=== PATIENT | female | born 1950 | race Caucasian/White ===

== ENCOUNTER 2016-08-28 22:12 | Inpatient (IN) | payer OTHER ==
--- NOTE | ~2016-08-28 | MR18 ---
[facility] A Service of [facility] RADIOLOGY TEXT RESULTS PATIENT: TYSON RETANA LOCATION: [facility] 340-01 : 49 UNIT #: [id number] AGE: [address]: Zuleika Vasquez MD SEX: F ORDER DR: [id number] [facility] [address]. [place], [place] [address] [id number] I MR#: [id number] #: [id number] NAME: TYSON RETANA : 1950 SEX: F STUDY DATE/TIME: 08/31/2016 11:45 [facility]: [facility] ROOM: 340 STUDY DESCRIPTION: MR Brain Wo Contrast Attending Physician: Zuleika Vasquez M.D. Ordering Physician: Zuleika Vasquez M.D. Primary Care Physician: Magalis Sky M.D. MRI CENTER REPORT This report is preliminary unless electronic signature is present. EXAM MRI of the brain without contrast performed on 08/31/2016 HISTORY 65-year-old female with confusion, UTI for the past 3 days. TECHNIQUE Sagittal and axial T1, axial T2, axial FLAIR, axial diffusion, axial gradient echo images were obtained through the region of the brain. FINDINGS There is evidence of scattered foci of restricted diffusion in both the swain and white matter in the left frontal and parietal lobe as well as posterior temporal lobe. Corresponding ADC is present and acute infarction is suspected. Edema is evident on the FLAIR sequence and the lesions are felt to be greater than 6 hours old. There is some decreased signal seen on the gradient echo image within the posterior left frontal lobe infarct portion and this may represent some petechial hemorrhage. The midline structures are intact and no pituitary or pineal lesions are evident. Within the right ethmoid, maxillary and frontal sinuses there is mucosal thickening present. IMPRESSION 1. Acute infarcts in the left cerebral hemisphere as described above. Some petechial hemorrhage noted on the gradient echo image in the posterior left frontal lobe and left parietal lobe cortical infarct. 2. No midline shift or significant mass effect. 3. Right sided sinusitis. Dictated by... Rodolfo Solares M.D. THIS IS AN ELECTRONICALLY VERIFIED REPORT [facility] A Service of [facility] RADIOLOGY TEXT RESULTS PATIENT: TYSON RETANA LOCATION: [facility] 340-01 : [birth year] UNIT #: [id number] AGE: [address]: Zuleika Vasquez MD SEX: F ORDER DR: Rodolfo Solares M.D. at 08/31/2016 7:04 PM Concha TD: 08/31/2016 15:11 JOB #: [id number] MRI CENTER REPORT COPY
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
--- NOTE | ~2016-08-28 | CO ---
Unit #: [id number] #: [id number] Patient: TYSON SPANGLER [id number] [facility]. [place], [place] [address] [id number] I MR#: [id number] NAME: TYSON SPANGLER ROOM: 340 Age: 65 Sex: F Admission Date: 08/29/2016 : 1950 Attending Physician: Zuleika Vasquez M.D. Primary Care Physician: Magalis Sky M.D. Consultation Date: 09/03/2016 CONSULTATION REPORT REASON FOR CONSULTATION Followup. DISCUSSION Ms. Zuleyma Spangler is a 65-year-old white female, seen on 09/03/2016. The patient was seen in room 340 at [facility]. The patient reports making progress. Pleasant and cooperative during interview. The patient was alert and oriented. Denied any thoughts of harming self or others. The patient is tolerating medication fairly well. Sleeping good. The patient denied any complaints. REVIEW OF SYSTEMS Complete review of systems is unremarkable. MENTAL STATUS EXAMINATION General appearance, the patient dressed casually, lying comfortably in bed. Attention span and concentration, fair. Speech, regular rate and coherent. Oriented in time, place, and person. Mood and affect were brighter, able to smile. Thought process, coherent and goal directed. Thought content, the patient denied any thoughts of harming self or others or any psychotic symptom. Recent and remote memory, fair. Language, able to name object and repeat phrases. Fund of knowledge, fair. Insight and judgment, fair to slightly impaired. DIAGNOSIS F33.2. ASSESSMENT/PLAN 1. Supportive psychotherapy and psychoeducation provided to the patient. 2. Educated about benefits and side effects of medication and course and prognosis of illness. 3. Advised to continue with current med management. If needed, consider further adjustment of medication. The patient is currently on haloperidol 2 mg at bedtime and Celexa 20 mg daily. No side effects from medication. We will continue to follow. Dictated by... Rosendo Blackman M.D. FRANCK/edinson TD: 09/04/2016 13:00 JOB #: [id number] Unit #: [id number] #: [id number] Patient: TYSON SPANGLER CONSULTATION REPORT X Rosendo Blackman MD CONSULTATION REPORT
--- NOTE | ~2016-08-28 | CO ---
Unit #: [id number] #: [id number] Patient: TYSON RETANA [id number] [facility] [address] [facility]. [place], [place] [address] [id number] I MR#: [id number] NAME: TYSON RETANA ROOM: 340 Age: 65 Sex: F Admission Date: 08/29/2016 : 1950 Attending Physician: Zuleika Vasquez M.D. Primary Care Physician: Magalis Sky M.D. Consultation Date: 08/30/2016 CONSULTATION REPORT REASON FOR CONSULTATION Depression, dementia, psychosis. HISTORY OF PRESENT ILLNESS Ms. Zuleyma Kim is a 65-year-old female, seen on 08/30/2016. The patient was seen in room 230, bed 1, at [facility]. The patient was lying comfortably in bed. The patient was able to communicate, but giving approximate answers. The patient was answering to most of the question, yes. The patient was not having any problem with memory when she was at home according to the family. According to the primary physician, the patient is not having any medical issues or any neurological problem at this time. The patient has a history of depression and is on Celexa. The patient denied any thoughts of harming self or others, but somewhat guarded, paranoid. PAST PSYCHIATRIC HISTORY Remarkable for history of depression. MEDICAL HISTORY History of anxiety, depression, diabetes, hypertension. MEDICATION HISTORY The patient is on Celexa, Combivent, Levemir, NovoLog. FAMILY HISTORY AND SOCIAL HISTORY The patient has a good support from the family. No history of any abuse. No history of any substance abuse. REVIEW OF SYSTEMS Complete review of systems is unremarkable. MENTAL STATUS EXAMINATION General appearance, the patient is dressed casually in hospital attire, lying comfortably in bed. Attention span and concentration, poor. Speech was slow and answering question in single word. Orientation in place. Mood and affect, labile. Thought process, circumstantial. Thought content, denied any thoughts of harming self or others or any auditory or visual hallucination, but guarded and paranoid. Recent and remote memory, poor. Language, answering question in single word. Fund of knowledge, poor. Insight and judgment, impaired. DIAGNOSES Psychiatric: 1. Mood disorder, not otherwise specified, F32.9. Unit #: [id number] #: [id number] Patient: TYSON RETANA 2. Rule out major depressive disorder with psychotic feature, F33.2. 3. Rule out delirium, F05. 4. Also considering probable neurocognitive disorder secondary to Alzheimer disease without behavioral disturbances, F02.80. Secondary diagnosis: Deferred. Medical diagnosis: Please refer to H and P. Stressors: Psychosocial stressors. ASSESSMENT/PLAN 1. Supportive psychotherapy and psychoeducation were provided to patient, but the patient is unable to comprehend much. 2. Recommending at this time to continue with current treatment with a plan to increase Celexa to 20 mg daily and add Haldol 2 mg at bedtime. We will give it a try with this medication and monitor the patient's mood and behavior closely. If needed, consider inpatient psych, also considering diagnosis of toxic metabolic encephalopathy. Therefore continue with the inpatient treatment. Please feel free to call if any questions; telephone #[phone]. Dictated by... Ronny Pak/edinson TD: 09/01/2016 06:53 JOB #: [id number] CONSULTATION REPORT X Rosendo Blackman MD CONSULTATION REPORT
--- NOTE | ~2016-08-28 | CT71 ---
[facility] A Service of [facility] RADIOLOGY TEXT RESULTS PATIENT: TYSON RETANA LOCATION: [facility] 340-01 : [birth year] UNIT #: [id number] AGE: [address]: Zuleika Vasquez MD SEX: F ORDER DR: [id number] [facility] [address] [facility]. [place], [place] [address] [id number] I MR#: [id number] Acc #: [id number] NAME: TYSON RETANA : 1950 SEX: F STUDY DATE/TIME: 09/01/2016 8:22 UNIT: [address] ROOM: [facility] STUDY DESCRIPTION: CT Head Wo Contrast Attending Physician: Zuleika Vasquez M.D. Ordering Physician: Gaviota Epps A.P.R.N. Primary Care Physician: Magalis Sky M.D. MEDICAL IMAGING REPORT This report is preliminary unless electronic signature is present EXAM CT brain without contrast media, 09/01/2016 COMPARISON 08/28/2016 HISTORY Confusion and disorientation beginning 08/28/2016. History of heart failure and diabetes. TECHNIQUE This CT exam was performed with one or more of the following radiation dose reduction techniques: automatic exposure control, adjustment of mA and/or kV according to patient size, and iterative reconstruction. FINDINGS Transaxial imaging of the brain was performed and compared with the old studies. There is generalized enlargement of the ventricles and CSF-containing spaces. No intra or extraaxial mass lesions, fluid collections or mass effect are seen. No focal areas of low attenuation or hemorrhage are identified. The study does show some focal chronic ischemic changes in the left basal ganglia and left external capsule. These are unchanged. The bone windows are reviewed. No fractures are identified. The patient does have chronic mucosal disease in the frontal, ethmoid, sphenoid, and maxillary sinuses. CONCLUSION 1. Generalized atrophy. Chronic ischemic changes as noted. No acute intracranial findings. 2. Chronic paranasal sinus disease. This involves the frontal ethmoid, maxillary and sphenoid sinuses. Dictated by... [facility] A Service of [facility] RADIOLOGY TEXT RESULTS PATIENT: TYSON RETANA LOCATION: [facility] 340-01 : [birth year] UNIT #: [id number] AGE: [address]: Zuleika Vasquez MD SEX: F ORDER DR: Wili To M.D. THIS IS AN ELECTRONICALLY VERIFIED REPORT Wili To M.D. at 09/01/2016 4:45 PM Bailey TD: 09/01/2016 11:26 JOB #: [id number] MEDICAL IMAGING REPORT COPY
--- NOTE | ~2016-08-28 | CR72 ---
[facility] A Service of [facility] RADIOLOGY TEXT RESULTS PATIENT: TYSON RETANA LOCATION: [facility] 340-01 : [birth year] UNIT #: [id number] AGE: [address]: Zuleika Vasquez MD SEX: F ORDER DR: [id number] [facility] [address] [facility]. [place], [place] [address] [id number] I MR#: [id number] Acc #: [id number] NAME: TYSON RETANA : 1950 SEX: F STUDY DATE/TIME: 08/28/2016 22:15 UNIT: CEDOF ROOM: 76280 STUDY DESCRIPTION: CR Chest Single View Portable Attending Physician: Mac Ramirez M.D. Ordering Physician: Kar Durand M.D. Primary Care Physician: Magalis Sky M.D. MEDICAL IMAGING REPORT This report is preliminary unless electronic signature is present EXAM Portable AP view of the chest, 08/28/2016 COMPARISON June 05, 2014; October 19, 2005; October 26, 2005. INDICATION 65-year-old female with cough and dyspnea as well as altered mental status for 1 day. History of CHF. FINDINGS There is cardiomegaly. There is increased prominence of the pulmonary interstitium with mild pulmonary vascular cephalization, perhaps reflecting mild interstitial edema. An atypical infectious process not entirely excluded. No pleural effusion or pneumothorax. IMPRESSION Cardiomegaly with diffusely increased mild interstitial opacities throughout the lungs favoring mild interstitial edema. Correlation to exclude signs of pneumonia recommended. No pleural effusion. Dictated by... Nir Mcgregor M.D. THIS IS AN ELECTRONICALLY VERIFIED REPORT Nir Mcgregor M.D. at 08/31/2016 8:49 PM MARLENE/shannon TD: 08/29/2016 05:02 [facility] A Service of [facility] RADIOLOGY TEXT RESULTS PATIENT: TYSON RETANA LOCATION: [facility] 340-01 : [birth year] UNIT #: [id number] AGE: [address]: Zuleika Vasquez MD SEX: F ORDER DR: JOB #: [id number] MEDICAL IMAGING REPORT COPY
--- NOTE | ~2016-08-28 | CT23 ---
[facility] A Service of [facility] RADIOLOGY TEXT RESULTS PATIENT: TYSON RETANA LOCATION: [facility] 340-01 : [birth year] UNIT #: [id number] AGE: [address]: Zuleika Vasquez MD SEX: F ORDER DR: [id number] [place], [place] [address] [id number] I MR#: [id number] Acc #: [id number] NAME: TYSON RETANA : 1950 SEX: F STUDY DATE/TIME: 08/31/2016 20:01 UNIT: [address] ROOM: [facility] STUDY DESCRIPTION: CT Angio Neck Attending Physician: Zuleika Vasquez M.D. Ordering Physician: Gaviota Epps A.P.R.N. Primary Care Physician: Magalis Sky M.D. MEDICAL IMAGING REPORT This report is preliminary unless electronic signature is present EXAM CT angio neck HISTORY Confusion for 1 day. FINDINGS Please see CT ANGIO HEAD report for combined text results. Dictated by... Rojelio Costello M.D. THIS IS AN ELECTRONICALLY VERIFIED REPORT Rojelio Costello M.D. at 09/04/2016 4:33 PM TEV/psc TD: 09/01/2016 04:01 JOB #: [id number] MEDICAL IMAGING REPORT COPY
--- NOTE | ~2016-08-28 | DS ---
Unit #: [id number] #: [id number] Patient: TYSON RETANA [id number] [address] [place], [place] [address] [id number] I MR#: [id number] NAME: TYSON RETANA ROOM: 340 Age: 65 Sex: F Admission Date: 08/29/2016 : 1950 Discharge Date: 09/04/2016 Attending Physician: Zuleika Vasquez M.D. Primary Care Physician: Magalis Sky M.D. DISCHARGE SUMMARY ADDENDUM This is an addendum to a previously dictated Transfer of Care note. HOSPITAL COURSE The patient remained stable over the weekend with no other acute findings. She did have a repeat urinalysis which has been negative for infection. Her antibiotics have been changed to Levaquin and she will be discharged to rehab when arranged. DISCHARGE CONDITION Stable. DISCHARGE STATUS Discharge to home. DISCHARGE MEDICATIONS 1. Eliquis 5 mg p.o. b.i.d. 2. Celexa 20 mg p.o. daily. 3. Metformin 1000 mg b.i.d. 4. Haldol 2 mg at bedtime. 5. Coreg 3.125 mg p.o. b.i.d. 6. Lipitor 80 mg at bedtime. 7. Zestril 5 mg b.i.d. 8. Levemir 15 units subcutaneously in the morning. 9. Levaquin 750 mg p.o. daily, to stop after dose on September 06, 2016. 10. NovoLog 4 units subcu t.i.d. with meals with associated high dose sliding scale. DISCHARGE INSTRUCTIONS The patient was instructed to follow a constant carb heart healthy diet. She can increase her activity as tolerated. She should continue Accu-Cheks a.c. and h.s. at home. FOLLOWUP The patient will follow up with her primary care physician, Dr. Magalis Sky, upon discharge from rehab. She should follow up with Dr. Zion Morel of outpatient neurology as an outpatient as well and should be arranged for outpatient followup at [facility]. Dictated by... Unit #: [id number] #: [id number] Patient: LAINEYTYSON Schroeder M.D. KEH/bi TD: 09/04/2016 10:50 JOB #: [id number] DISCHARGE SUMMARY X Zuleika Vasquez MD X DISCHARGE SUMMARY
--- NOTE | ~2016-08-28 | DS ---
Unit #: [id number] #: [id number] Patient: TYSON RETANA [id number] [address] [address] [id number] I MR#: [id number] NAME: TYSON RETANA ROOM: 340 Age: 65 Sex: F Admission Date: 08/29/2016 : 1950 Discharge Date: 09/05/2016 Attending Physician: Zuleika Vasquez M.D. Primary Care Physician: Magalis Sky M.D. DISCHARGE SUMMARY ADDENDUM I was informed today that patient's insurance will not pay for rehab and, thus, she is going to be discharged home with home health with plans for PT, OT, and Speech therapy. She will also have nursing evaluate her sugars. DISCHARGE MEDICATIONS As previously noted, with the exception of increasing her NovoLog to 6 units subcu t.i.d. with meals rather than 4. One month refill was given on all medications. I also wrote patient for test strips, lancets and new glucometer. Dictated by... Zuleika Vasquez M.D. PATTIE/whitney TD: 09/06/2016 22:09 JOB #: [id number] DISCHARGE SUMMARY X Zuleika Vasquez MD X DISCHARGE SUMMARY
--- NOTE | ~2016-08-28 | CO ---
Unit #: [id number] #: [id number] Patient: TYSON SPANGLER [id number] [facility] [address]. [place], [place] [address] [id number] I MR#: [id number] NAME: TYSON SPANGLER ROOM: 340 Age: 65 Sex: F Admission Date: 08/29/2016 : 1950 Attending Physician: Zuleika Vasquez M.D. Primary Care Physician: Magalis Sky M.D. Consultation Date: 08/31/2016 CONSULTATION REPORT REASON FOR CONSULTATION Confusion and altered mental status. HISTORY OF PRESENT ILLNESS Ms. Zuleyma Spangler is a 65-year-old white female, seen in room 340, bed 1, at [facility] on 08/31/2016 with the above-mentioned complaint. The patient was pleasant and cooperative during interview. Reports that she had problem with confusion and problem with memory yesterday, but feeling better. The patient was admitted with confusion and altered mental state. The patient's UA was consistent with urinary tract infection. The patient has a history of depression and takes citalopram. The patient was diagnosed with toxic metabolic encephalopathy and responded well with the Haldol. No side effects from medication. Currently, denied any thoughts of harming self or others. Denied any use of drugs or alcohol. Reports mood is better. PAST PSYCHIATRIC HISTORY Remarkable for history of depression and anxiety, currently on Celexa. MEDICAL HISTORY The patient was admitted with UTI and altered mental status. History of diabetes and hypertension. MEDICATION HISTORY The patient is on Celexa, Combivent, Levemir, and NovoLog and also prescribed Haldol 2 mg at bedtime. FAMILY HISTORY AND SOCIAL HISTORY The patient has good support from family. No history of any abuse. No history of any substance abuse. REVIEW OF SYSTEMS Complete review of systems is unremarkable except as mentioned above. MENTAL STATUS EXAMINATION General appearance; the patient dressed casually in hospital attire, sitting in a propped up position, able to answer questions appropriately, pleasant and cooperative. Attention span and concentration, fair. Speech, regular rate and coherent. Oriented in time, place, and person. Mood and affect were labile. Thought process, coherent. Thought content, the patient denied any thoughts of harming self or others. Denied any hallucination, but had problem with confusion and problem with memory yesterday, improving. Recent and remote memory, fair. Language, able to name object and repeat phrases. Fund of knowledge, fair. Insight and Unit #: [id number] #: [id number] Patient: TYSON SPANGLER judgment, fair to slightly impaired. DIAGNOSES Psychiatric: Delirium, F05, resolving and major depressive disorder, recurrent, severe, F33.2. Secondary diagnosis: Deferred. Medical diagnosis: Please refer to H and P. Stressors: Psychosocial stressor. ASSESSMENT/PLAN 1. Supportive psychotherapy and psychoeducation provided to the patient. 2. Educated about benefits and side effects of medication and course and prognosis of illness. 3. Advised to continue with current medication combination and if needed, consider further adjustment. Please feel free to call if any questions, telephone #[phone]. Dictated by... Ronny Pak/edinson TD: 09/01/2016 17:49 JOB #: [id number] CONSULTATION REPORT X Rosendo Blackman MD CONSULTATION REPORT
--- NOTE | ~2016-08-28 | EKG ---
PATIENT: TYSON RETANA UNIT #: [id number] Ventricular Rate: 78 BPM Atrial Rate: 66 BPM QRS Duration: 76 ms Q-T Interval: 366 ms QTC Calculation(Bezet): 417 ms Calculated R Moosic: 72 degrees Calculated T Moosic: -50 degrees Diagnosis Line: Atrial fibrillation Diagnosis Line: Nonspecific ST and T wave abnormality , probably Diagnosis Line: digitalis effect Diagnosis Line: Abnormal ECG Diagnosis Line: When compared with ECG of 05-JUN-2014 16:46, Diagnosis Line: Atrial fibrillation has replaced Sinus rhythm Diagnosis Line: QT has shortened Diagnosis Line: Confirmed by ZIA LOPEZ MD ([id number]) on Diagnosis Line: 08/29/2016 11:57:46 AM INTERPRETING : CINDY
--- NOTE | ~2016-08-28 | TOC ---
Unit #: [id number] #: [id number] Patient: TYSON SPANGLER [id number] [address] [place], [place] [address] [id number] I MR#: [id number] NAME: TYSON SPANGLER ROOM: 340 Age: 65 Sex: F Admission Date: 08/29/2016 : 1950 Attending Physician: Zuleika Vasquez M.D. Primary Care Physician: Magalis Sky M.D. TRANSFER OF CARE SUMMARY PRINCIPAL DIAGNOSES 1. 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 2. Coag negative Staph urinary tract infection. 3. Toxic metabolic encephalopathy secondary to #2, now resolved. 4. Community acquired pneumonia. 5. Severe depression with associated psychosis, now improved. 6. Diabetes mellitus type 2, insulin requiring, and uncontrolled, as hemoglobin A1c of 14.0. 7. Atrial fibrillation newly diagnosed but likely chronic, rate controlled and now on anticoagulation. 8. Bedbug infestation, status post treatment. 9. Hypertension. 10. Probable chronic obstructive pulmonary disease. 11. Deconditioning. 12. Moderate protein malnutrition. 13. Obesity. 14. Mild to moderate mitral regurgitation. CONSULTANTS Dr. Reinoso, neurology and Dr. Blackman, psychiatry. PROCEDURES 1. 2-Dimensional echocardiogram on 08/29/2016 with ejection fraction of 50% to 55%, severe septal hypokinesis noted, moderately dilated left atrium and moderately enlarged right atrial size noted. Mild to moderate mitral regurgitation. Mild to moderate tricuspid regurgitation. Right ventricular systolic pressure 36 mmHg. 2. Chest x-ray on 08/28/2016 with cardiomegaly and diffuse increased interstitial opacities consistent with questionable edema. 3. CT of the head without contrast on 08/28/2016 with atrophy. No other acute findings. 4. Chest x-ray on 08/31/2016 with some prominent of the lungs noted, improving interstitial edema. 5. MRI of the brain without contrast on 08/31/2016 with acute infarction of left cerebral hemisphere. This is present left frontal and parietal lobe and posterior temporal lobe. No midline shift or mass noted. Mild petechial hemorrhage is noted in the posterior left frontal lobe and left parietal lobe. 6. CT angiogram of the head and neck on 08/31/2016 with no intracranial aneurysm or occlusion. 0% stenosis of the internal carotids bilaterally per NASCET criteria. There is a right thyroid nodule that is stable since 2013. 7. CT of the head without contrast on 09/01/2016 with generalized atrophy Unit #: [id number] #: [id number] Patient: TYSON SPANGLER and chronic ischemia changes. Chronic paranasal sinus disease noted. CLINICAL HISTORY AND HOSPITAL COURSE Ms. Spangler is a 65-year-old female brought to the emergency department by family due to increasing confusion. The patient was unable to provide any history; however, urinalysis was consistent with urinary tract infection. CT scan of the head upon presentation was also unremarkable. Patient was placed on IV fluids, empiric antibiotics and subsequently admitted. Patient was initially admitted to the medical floor and maintained on antibiotics. The day of admission she still remained rather somnolent and not very interactive. Urine culture, however, grew coag negative Staph, which may represent some infection versus perhaps a contaminate, however, given her significant encephalopathy she was maintained on antibiotics. Patient's mental status did improve on antibiotics and she would answer questions but gave rather vague answered and very short kimberley answers. She also demonstrates significant poor self-care and I was concerned that perhaps there is significant underlying depression versus dementia. For this reason the patient was seen by Dr. Blackman. Upon evaluation per Dr. Blackman, the patient was placed on Haldol at night and following morning was much more awake and interactive, though her answers were still brief. She was seen by physical therapy who felt she was having some word finding difficulty. For this reason MRI of the brain was done and did reveal multiple subacute left-sided strokes. The patient was transferred to the stroke floor and Dr. Reinoso was consulted. Patient was also found to be in atrial fibrillation, which is likely the source of her stroke. 2-Dimensional echocardiogram, which was ordered upon admission due to questionable pulmonary edema did not reveal any significant stenosis. Her AFib has been rate controlled. We are going to place her on Eliquis with no further stroke workup necessary given carotids were normal. JESSE would be unlikely to change treatment at this point. I am worried about placing her on Coumadin given she is poorly compliant and still seems to suffer from some memory loss and I think is high risk for fall. For this reason I am going to pick Moni. I am also going to place her on a low dose of Coreg just to maintain rate control and her AFib. Patient today is clinically improving. The other significant abnormality is she developed a fever during hospitalization and chest x-ray indeed may represent some pulmonary edema but may also represent pneumonia particularly given she had a fever. I placed her on Omnicef and she looks significantly improved and has not had a recurrent fever. I am going to complete a course of Omnicef for a presumed pneumonia. The patient also has poorly controlled diabetes as indicated by hemoglobin A1c. She has been placed on Levemir and NovoLog and sugars are improving. She has received diabetic education. As noted above, the patient had signs and symptoms of significant neglect upon presentation. Whether this neglect is self-inflicted versus related to her family is unclear and [facility] has been contacted. Plan is discharge from hospital and then to live with patient's brother. Further hospital course to be dictated as an addendum. Unit #: [id number] #: [id number] Patient: TYSON SPANGLER Dictated by... Zuleika Vasquez M.D. PATTIE/ruel TD: 09/02/2016 19:07 JOB #: [id number] TRANSFER OF CARE SUMMARY X Zuleika Vasquez MD TRANSFER OF CARE SUMMARY
--- NOTE | ~2016-08-28 | CR63 ---
[facility] A Service of [facility] & [facility] RADIOLOGY TEXT RESULTS PATIENT: TYSON RETANA LOCATION: [facility] 340-01 : [birth year] UNIT #: [id number] AGE: [address]: Zuleika Vasquez MD SEX: F ORDER DR: [id number] [facility] [address]. [place], [place] [address] [id number] I MR#: [id number] Acc #: [id number] NAME: TYSON RETANA : 1950 SEX: F STUDY DATE/TIME: 08/31/2016 10:42 UNIT: [address] ROOM: [facility] STUDY DESCRIPTION: CR Chest 2 View Attending Physician: Zuleika Vasquez M.D. Ordering Physician: Zuleika Vasquez M.D. Primary Care Physician: Magalis Sky M.D. MEDICAL IMAGING REPORT This report is preliminary unless electronic signature is present EXAM 2 views chest 08/31/2016 HISTORY Short of air. FINDINGS PA and lateral radiographs of the chest are presented. Comparison 08/28/2016. Stable cardiac enlargement. Mild linear interstitial prominence in the lungs stable to decreased compared to prior study. Some component may represent chronic change. Some component may reflect improving interstitial edema. There is no air space disease, pleural effusion or pneumothorax. No suspicious nodule. Degenerative changes in the spine. No acute appearing bony abnormality. Dictated by... Wili Tran M.D. THIS IS AN ELECTRONICALLY VERIFIED REPORT Wili Tran M.D. at 09/02/2016 8:22 PM SIA/leana TD: 08/31/2016 15:18 JOB #: [id number] MEDICAL IMAGING REPORT COPY
--- NOTE | ~2016-08-28 | CT71 ---
[facility] A Service of [facility] & [facility] RADIOLOGY TEXT RESULTS PATIENT: TYSON RETANA LOCATION: [facility] 230-01 : [birth year] UNIT #: [id number] AGE: [address]: Zuleika Vasquez MD SEX: F ORDER DR: [id number] [facility] [address]. [place], [place] [address] [id number] I MR#: [id number] Acc #: [id number] NAME: TYSON RETANA : 1950 SEX: F STUDY DATE/TIME: 08/28/2016 22:55 UNIT: CEDOF ROOM: 02043 STUDY DESCRIPTION: CT Head Wo Contrast Attending Physician: Mac Ramirez M.D. Ordering Physician: Kar Durand M.D. Primary Care Physician: Magalis Sky M.D. MEDICAL IMAGING REPORT This report is preliminary unless electronic signature is present EXAM Head CT without contrast, 08/28/2016 HISTORY Confusion for [address] exam was performed with one or more of the following radiation dose reduction techniques: automatic exposure control, adjustment of mA and/or kV according to patient size, and iterative reconstruction. FINDINGS Axial images of the brain obtained without contrast show generalized atrophy. There is no evidence of mass effect, hemorrhage, or edema and no midline shift is seen. No acute changes are noted. IMPRESSION Atrophy; otherwise, normal CT of the brain. Dictated by... Moe Serrato M.D. THIS IS AN ELECTRONICALLY VERIFIED REPORT Moe Serrato M.D. at 08/29/2016 4:21 PM RED/shannon TD: 08/29/2016 04:27 JOB #: [id number] MEDICAL IMAGING REPORT COPY
--- NOTE | ~2016-08-28 | CT17 ---
[facility] A Service of [facility] & [facility] RADIOLOGY TEXT RESULTS PATIENT: TYSON RETANA LOCATION: [facility] 340-01 : [birth year] UNIT #: [id number] AGE: [address]: Zuleika Vasquez MD SEX: F ORDER DR: [id number] [facility] [address] [place], [place] [address] [id number] I MR#: [id number] Acc #: [id number] NAME: TYSON RETANA : 1950 SEX: F STUDY DATE/TIME: 08/31/2016 20:01 UNIT: [address] ROOM: 340 STUDY DESCRIPTION: CT Angio Head Attending Physician: Zuleika Vasquez M.D. Ordering Physician: Gaviota Epps A.P.R.N. Primary Care Physician: Magalis Sky M.D. MEDICAL IMAGING REPORT This report is preliminary unless electronic signature is present EXAM Head and neck CT angiogram with contrast, 08/31/2016 HISTORY Confusion for 1 day. PROCEDURE Axial contrast-enhanced head and neck CT angiogram with three-dimensional reformats. This CT exam was performed with one or more of the following radiation dose reduction techniques: Automatic exposure control, adjustment of mA and/or kV according to patient size, and iterative reconstruction. FINDINGS There is a normal arch branching pattern without proximal great vessel stenosis. Both common, and internal and external carotid and vertebral arteries are patent. The cervical carotid bifurcations show no evidence of stenosis on either side, by NASCET or other criteria, though there may be slight plaque on the left. The vertebral arteries are patent throughout the neck as well. The basilar artery is normal in caliber. There is a type right posterior cerebral origin and the left posterior communicator is patent. The right A1 anterior cerebral is tiny but probably patent and the left ICA supplies both ADONIS territories. Intracranially, there is no evidence of aneurysm. There is no convincing flow-limiting stenosis or branch vessel occlusion. There is symmetric vascularity. The dural venous sinuses are normal. The cervical soft tissues are remarkable for some paranasal sinus mucosal disease and a right thyroid lesion measuring about 13 mm in size. There are normal-sized lymph nodes, but the lung apices are remarkable only for right pleural effusion. The bony structures are normal. [facility] A Service of [facility] RADIOLOGY TEXT RESULTS PATIENT: TYSON RETANA LOCATION: [facility] 340-01 : [birth year] UNIT #: [id number] AGE: [address]: Zuleika Vasquez MD SEX: F ORDER DR: IMPRESSION 1. No intracranial aneurysm or branch vessel occlusion or other acute intracranial abnormality. 2. Slight plaque at the left carotid bifurcation, but 0% stenosis in both internal carotids by NASCET criteria. No intracranial aneurysm or flow-limiting stenosis, mass or abnormal enhancement or convincing evidence of any branch vessel occlusion or region or zone of hypoperfusion. Right maxillary and ethmoid paranasal sinus mucosal disease. 3. Right thyroid 13-mm nodule, this appears unchanged since CT of 2014. Dictated by... Rojelio Costello M.D. THIS IS AN ELECTRONICALLY VERIFIED REPORT Rojelio Costello M.D. at 09/04/2016 4:33 PM TEV/psc TD: 09/01/2016 03:49 JOB #: [id number] MEDICAL IMAGING REPORT COPY
--- NOTE | ~2016-08-28 | HP ---
Unit #: [id number] #: [id number] Patient: TYSON RETANA [id number] [address] [place], [place] [address] [id number] I MR#: [id number] NAME: TYSON RETANA ROOM: 230 Age: 65 Sex: F Admission Date: 08/29/2016 : 1950 Attending Physician: Mac Ramirez M.D. Primary Care Physician: Magalis Sky M.D. HISTORY AND PHYSICAL CHIEF COMPLAINT Confusion. HISTORY OF PRESENT ILLNESS The patient is a 65-year-old female brought in by family after she was noted to be confused. The patient is unable to give me any history whatsoever. UA is consistent with urinary tract infection. PAST MEDICAL HISTORY Gleaned from old records, diabetes and hypertension. PAST SURGICAL HISTORY Cholecystectomy, lap band, tubal ligation. SOCIAL HISTORY Unable to obtain. FAMILY HISTORY Unable to obtain. ALLERGIES Penicillin. HOME MEDICATIONS 1. Citalopram. 2. Combivent. 3. Levemir. 4. NovoLog. REVIEW OF SYSTEMS Unable to obtain. PHYSICAL EXAMINATION GENERAL APPEARANCE: A 65-year-old female in no acute distress appears stated age. VITAL SIGNS: Temperature 98.3. Pulse 91. Blood pressure 148/114. HEENT: Pupils equally round. Extraocular movements intact. Mucous membranes dry. NECK: Supple. No JVD. No lymphadenopathy. CARDIAC: Regular rate and rhythm. No murmurs, gallops or rubs. LUNGS: Clear to auscultation bilaterally. ABDOMEN: Mildly tender to palpation diffusely. Soft. No hepatosplenomegaly. EXTREMITIES: No clubbing, cyanosis or edema. They are warm and dry. Unit #: [id number] #: [id number] Patient: TYSON RETANA PSYCHIATRIC: Alert and oriented times one. Affect is labile. NEUROLOGIC: Cranial nerves II-XII intact grossly. The patient moves all extremities equally and with purpose. SKIN: No rashes, bruise or ulcer. MUSCULOSKELETAL: No muscle or joint pain. No muscle or joint swelling. DIAGNOSTIC STUDIES LABORATORY: Glucose 294, creatinine 0.4. CBC is normal. UA is consistent with urinary tract infection. Tox screen is negative. IMAGING: Chest x-ray shows question of mild pulmonary edema and CT head shows no acute abnormalities. ASSESSMENT AND PLAN 1. Toxic metabolic encephalopathy. This is secondary to the patient's urinary tract infection. I started the patient on Rocephin. 2. Urinary tract infection. Cultures pending. Rocephin has been started. 3. Pulmonary edema. I have ordered a 2D echo. The patient is in no respiratory distress at this time. 4. Prophylaxis. The patient is started on Lovenox. Dictated by Mac Ramirez M.D. BROWN/juwan TD: 08/29/2016 06:24 JOB #: [id number] HISTORY AND PHYSICAL X Mac Ramirez MD X HISTORY AND PHYSICAL
[2016-08-28 21:12] LABS: POC - CKMB 4.4 ng/mL (0.0-7.9); POC - TROPONIN <0.05 ng/mL (<=0.05)
[2016-08-28 21:22] LABS: BASOPHIL% 0.5 % (0-2.5); EOSINOPHIL# 0.3 X10e3 (0-0.7); EOSINOPHIL% 2.9 % (0.0-7.0); HEMATOCRIT 39.1 % (35.0-45.0); HEMOGLOBIN 13.1 gm/dL (12.0-16.0); LYMPHOCYTE# 1.5 X10e3 (1.0-3.5); LYMPHOCYTE% 16.7 % (17.0-45.0); MEAN CELL VOLUME 86.8 FL (83-96); MEAN CORPUSCULAR HEMOGLOBIN 29.1 PG (28-34); MEAN CORPUSCULAR HGB CONC 33.5 g/dL (30-36); MEAN PLATELET VOLUME 7.7 FL (6.5-11.5); MONOCYTE# 0.9 X10e3 (0-1.0); NEUTROPHIL# 6.1 X10e3 (1.5-7.1); NEUTROPHIL% 69.9 % (40-75); PLATELET COUNT 267 X10e3 (140-420); RED BLOOD COUNT 4.51 X10e (3.90-5.30); RED CELL DISTRIBUTION WIDTH 12.9 % (11.0-15.5); WHITE BLOOD COUNT 8.7 X10e3 (4.0-10.5)
[2016-08-28 21:23] LABS: DIFF IND NO
[2016-08-28 21:37] LABS: PARTIAL THROMBOPLASTIN TIME 24.4 SECONDS (23.5-31.3); PROTHROMBIN TIME (PATIENT) 10.7 SECONDS (9.6-11.5)
[2016-08-28 21:43] LABS: ALBUMIN SERUM 3.4 g/dL (3.5-5.0); ALKALINE PHOSPHATASE 95 U/L (32-92); ALT (SGPT) 9 U/L (10-40); AST (SGOT) 22 U/L (10-42); BILIRUBIN, DIRECT 0.3 mg/dL (0.0-0.2); BILIRUBIN,TOTAL 1.3 mg/dL (0.2-2.0); BLOOD UREA NITROGEN 6 mg/dL (9-23); CALCIUM SERUM 8.8 mg/dL (8.4-10.2); CARBON DIOXIDE 31 mmol/L (22-31); CHLORIDE 96 mmol/L (100-111); CREATININE SERUM 0.4 mg/dL (0.6-1.4); GLOM FILT RATE Estimated ABOVE60 mL/min (>60); GLUCOSE FASTING 294 mg/dL (70-110); SODIUM 136 mmol/L (135-145)
[~2016-08-28 22:12] MED LIST: AVANDIA; CITALOPRAM HBR10 MG PO; COMBIVENT U/D3 M2 INH; CRESTOR PO; CYMBALTA PO; DOXYCYCLINE150 MG PO; GLYBURIDE; GLYBURIDE PO; KCL; LASIX; LEVAQUIN; LEVEMIR100 UNITS/ SUBQ; LISINOPRIL; LOPID600 MG; METFORMIN HCL500 M1 PO; NOVOLOG100 U/ML SUBQ; TOPROL XL
[2016-08-28 22:55] LABS: URINE SOURCE CLEAN CATCH
[2016-08-28 23:03] LABS: URINE APPEARANCE CLEAR; URINE BILIRUBIN NEG (NEG); URINE BLOOD 1+ (NEG); URINE COLOR YELLOW; URINE GLUCOSE >1000 MG/DL (NEG); URINE KETONE 2+ (NEG); URINE LEUKOCYTE ESTERASE NEG (NEG); URINE NITRATE POS (NEG); URINE PH 5.5 (5-8); URINE PROTEIN 2+ (NEG); URINE SPECIFIC GRAVITY 1.035 (1.003-1.035)
[2016-08-28 23:08] LABS: CULTURE INDICATED? YES; URBCS1 AUWI 25-50 /[HPF] (0-2); URINE BACTERIA AUWI 2+ (NEGATIVE); URINE SQUAMOUS EPITHELIAL CELL NONE SEEN /[HPF]; UWBCS1 AUWI 25-50 (0-5)
[2016-08-28 23:32] LABS: U HYALINE CASTS AUWI 0-2 /[LPF]
[2016-08-28 23:33] LABS: AMPHETAMINE NEG (NEG); BARBITURATES NEG (NEG); BENZODIAZEPINES NEG (NEG); COCAINE NEG (NEG); MARIJUANA NEG (NEG); OPIATES NEG (NEG); TRICYCLIC ANTIDEPRESSANTS NEG (NEG); U METHADONE NEG (NEG)
[2016-08-29] MEDS ORDERED: GLIMEPIRIDE2 MG PO (06:40)
[2016-08-29] MEDS ORDERED: METFORMIN HCL1000 M1 PO (06:41)
[2016-08-29 08:53] LABS: BASOPHIL# 0.1 X10e3 (0-0.3); BASOPHIL% 0.6 % (0-2.5); EOSINOPHIL# 0.1 X10e3 (0-0.7); EOSINOPHIL% 1.3 % (0.0-7.0); HEMATOCRIT 37.6 % (35.0-45.0); HEMOGLOBIN 12.6 gm/dL (12.0-16.0); LYMPHOCYTE# 1.5 X10e3 (1.0-3.5); LYMPHOCYTE% 16.2 % (17.0-45.0); MEAN CELL VOLUME 86.9 FL (83-96); MEAN CORPUSCULAR HEMOGLOBIN 29.1 PG (28-34); MEAN CORPUSCULAR HGB CONC 33.5 g/dL (30-36); MEAN PLATELET VOLUME 7.9 FL (6.5-11.5); MONOCYTE# 0.9 X10e3 (0-1.0); MONOCYTE% 9.7 % (3.0-12.0); NEUTROPHIL# 6.8 X10e3 (1.5-7.1); NEUTROPHIL% 72.2 % (40-75); PLATELET COUNT 229 X10e3 (140-420); RED BLOOD COUNT 4.33 X10e (3.90-5.30); WHITE BLOOD COUNT 9.4 X10e3 (4.0-10.5)
[2016-08-29 08:55] LABS: DIFF IND NO
[2016-08-29 09:42] LABS: BLOOD UREA NITROGEN 8 mg/dL (9-23); CALCIUM SERUM 8.5 mg/dL (8.4-10.2); CARBON DIOXIDE 26 mmol/L (22-31); CHLORIDE 99 mmol/L (100-111); CREATININE SERUM 0.5 mg/dL (0.6-1.4); GLOM FILT RATE Estimated ABOVE60 mL/min (>60); GLUCOSE FASTING 284 mg/dL (70-110); POTASSIUM 4.2 mmol/L (3.5-5.1); SODIUM 135 mmol/L (135-145)
[2016-08-30 06:23] LABS: BASOPHIL# 0.1 X10e3 (0-0.3); BASOPHIL% 0.7 % (0-2.5); EOSINOPHIL# 0.1 X10e3 (0-0.7); EOSINOPHIL% 1.2 % (0.0-7.0); HEMATOCRIT 37.5 % (35.0-45.0); HEMOGLOBIN 12.3 gm/dL (12.0-16.0); LYMPHOCYTE# 1.6 X10e3 (1.0-3.5); LYMPHOCYTE% 14.7 % (17.0-45.0); MEAN CELL VOLUME 87.1 FL (83-96); MEAN CORPUSCULAR HEMOGLOBIN 28.5 PG (28-34); MEAN CORPUSCULAR HGB CONC 32.7 g/dL (30-36); MEAN PLATELET VOLUME 8.1 FL (6.5-11.5); MONOCYTE# 1.3 X10e3 (0-1.0); MONOCYTE% 11.9 % (3.0-12.0); NEUTROPHIL# 7.9 X10e3 (1.5-7.1); NEUTROPHIL% 71.5 % (40-75); PLATELET COUNT 239 X10e3 (140-420); RED CELL DISTRIBUTION WIDTH 13.1 % (11.0-15.5)
[2016-08-30 06:25] LABS: DIFF IND NO
[2016-08-30 07:07] LABS: BLOOD UREA NITROGEN 14 mg/dL (9-23); BUN/CREATININE RATIO 23.33; CALCIUM SERUM 8.5 mg/dL (8.4-10.2); CARBON DIOXIDE 24 mmol/L (22-31); CHLORIDE 101 mmol/L (100-111); CREATININE SERUM 0.6 mg/dL (0.6-1.4); GLOM FILT RATE Estimated ABOVE60 mL/min (>60); GLUCOSE FASTING 217 mg/dL (70-110); MAGNESIUM 1.6 mg/dL (1.6-3.0); POTASSIUM 4.2 mmol/L (3.5-5.1); SODIUM 135 mmol/L (135-145)
[2016-08-31 16:12] LABS: INR 1.1; PARTIAL THROMBOPLASTIN TIME 26.6 SECONDS (23.5-31.3)
[2016-08-31 16:42] LABS: CHOLESTEROL 178 mg/dL (0-200); HDL CHOLESTEROL 40 mg/dL (35-95); LDL CHOLESTEROL 120 mg/dL (-130); LDL/HDL RATIO 3 RATIO (0-4); TRIGLYCERIDES 92 mg/dL (10-160)
[2016-08-31 16:45] LABS: ALBUMIN SERUM 2.8 g/dL (3.5-5.0); ALKALINE PHOSPHATASE 90 U/L (32-92); ALT (SGPT) 19 U/L (10-40); AST (SGOT) 24 U/L (10-42); BILIRUBIN,TOTAL 0.7 mg/dL (0.2-2.0); BLOOD UREA NITROGEN 16 mg/dL (9-23); CALCIUM SERUM 8.3 mg/dL (8.4-10.2); CARBON DIOXIDE 25 mmol/L (22-31); CHLORIDE 98 mmol/L (100-111); CK TOTAL 88 IU/L (26-140); CREATININE SERUM 0.5 mg/dL (0.6-1.4); GLOM FILT RATE Estimated ABOVE60 mL/min (>60); GLUCOSE FASTING 204 mg/dL (70-110); POTASSIUM 3.9 mmol/L (3.5-5.1); PROTEIN TOTAL SERUM 6.1 g/dL (6.0-8.3); SODIUM 134 mmol/L (135-145)
[2016-08-31 17:05] LABS: MB 3.5 ng/ml
[2016-09-02 10:43] LABS: URINE SOURCE CATH
[2016-09-02 11:28] LABS: URINE APPEARANCE CLOUDY; URINE BILIRUBIN NEG (NEG); URINE BLOOD 3+ (NEG); URINE COLOR YELLOW; URINE GLUCOSE NEG (NEG); URINE KETONE NEG (NEG); URINE LEUKOCYTE ESTERASE 1+ (NEG); URINE NITRATE NEG (NEG); URINE PROTEIN 2+ (NEG)
[2016-09-02 11:31] LABS: URBCS1 AUWI 200-300 /[HPF] (0-2); URINE BACTERIA AUWI NEG (NEGATIVE); URINE SQUAMOUS EPITHELIAL CELL NONE SEEN /[HPF]; UWBCS1 AUWI 100-200 (0-5)
[2016-09-02 11:36] LABS: URINE YEAST PRESENT
[2016-09-03 06:02] LABS: HEMOGLOBIN 12.3 gm/dL (12.0-16.0); MEAN CORPUSCULAR HGB CONC 33.3 g/dL (30-36); MEAN PLATELET VOLUME 7.7 FL (6.5-11.5); RED BLOOD COUNT 4.26 X10e (3.90-5.30); RED CELL DISTRIBUTION WIDTH 12.9 % (11.0-15.5)
[2016-09-03 06:43] LABS: BLOOD UREA NITROGEN 12 mg/dL (9-23); CALCIUM SERUM 8.6 mg/dL (8.4-10.2); CARBON DIOXIDE 30 mmol/L (22-31); CHLORIDE 100 mmol/L (100-111); CREATININE SERUM 0.5 mg/dL (0.6-1.4); GLOM FILT RATE Estimated ABOVE60 mL/min (>60); GLUCOSE FASTING 208 mg/dL (70-110); POTASSIUM 4.1 mmol/L (3.5-5.1); SODIUM 136 mmol/L (135-145)
[2016-09-05] MEDS ORDERED: CELEXA20 MG PO (14:57)
[2016-09-05] MEDS ORDERED: HALDOL PO (14:58)
[2016-09-05] MEDS ORDERED: ELIQUIS5 MG PO (14:58)
[2016-09-05] MEDS ORDERED: COREG3.125 MG PO (14:59)
[2016-09-05] MEDS ORDERED: ATORVASTATIN CA80 MG PO (14:59)
[2016-09-05] MEDS ORDERED: LISINOPRIL5 MG PO (15:00)
[2016-09-05] MEDS ORDERED: LEVEMIR SUBQ (15:00)
[2016-09-05] MEDS ORDERED: LEVAQUIN750 MG PO (15:01)
[2016-09-05] MEDS ORDERED: NOVOLOG100 U/ML SUBQ (15:01)
== END 2016-09-05 19:28 | disposition home health service (06) | DRG 689 ==
LOC: CED 22:12 → CEDOF 08-29 02:50 → C2A 08-29 05:09 → C3A PCU 08-31 15:09
PROVIDERS: Emergency Medicine; Internal Medicine; Nurse Practitioner
PROC: B24BYZZ Ultrasonography of Heart with Aorta using Other Contrast (ICD-10-PCS; 2016-08-29)
PROC: 3E0234Z Introduction of Serum, Toxoid and Vaccine into Muscle, Percutaneous Approach (ICD-10-PCS; 2016-08-30)
PROC: B32GYZZ Computerized Tomography (CT Scan) of Bilateral Vertebral Arteries using Other Contrast (ICD-10-PCS; principal; 2016-08-31)
PROC: B328YZZ Computerized Tomography (CT Scan) of Bilateral Internal Carotid Arteries using Other Contrast (ICD-10-PCS; 2016-08-31)
PROC: B325YZZ Computerized Tomography (CT Scan) of Bilateral Common Carotid Arteries using Other Contrast (ICD-10-PCS; 2016-08-31)
DX: N39.0 Urinary tract infection, site not specified (principal); G92 Toxic encephalopathy; I63.412 Cerebral infarction due to embolism of left middle cerebral artery; E44.0 Moderate protein-calorie malnutrition; J18.9 Pneumonia, unspecified organism; F33.2 Major depressive disorder, recurrent severe without psychotic features; I48.91 Unspecified atrial fibrillation; F05 Delirium due to known physiological condition; G30.9 Alzheimer's disease, unspecified; J98.11 Atelectasis; Z88.0 Allergy status to penicillin; Z90.49 Acquired absence of other specified parts of digestive tract; Z98.51 Tubal ligation status; I10 Essential (primary) hypertension; Z91.041 Radiographic dye allergy status; I08.1 Rheumatic disorders of both mitral and tricuspid valves; E11.65 Type 2 diabetes mellitus with hyperglycemia; E78.5 Hyperlipidemia, unspecified; Z79.4 Long term (current) use of insulin; F39 Unspecified mood [affective] disorder; F02.80 Dementia in other diseases classified elsewhere, unspecified severity, without behavioral disturbance, psychotic disturbance, mood disturbance, and anxiety; T14.8 Other injury of unspecified body region; Z23 Encounter for immunization
CPT/HCPCS: 36415; 51702; 70450; 70496; 70498; 70551; 71010; 71020; 80048; 80053; 80061; 80076; 80307; 81003; 82140; 82550; 82553; 82607; 82947; 83036; 83605; 83735; 84443; 84484; 85025; 85027; 85610; 85730; 86140; 87040; 87086; 87088; 87186; 90688; 92507; 92523-GN; 93005; 93306; 94760; 96360; 97110; 97116; 97162; 97167; 97530; 97535; 99285; G8978-GP; G8979-GP; G8987-GO; G8988-GO; G8996-GN; G8997-GN; G8998-GN; G8999-GN; G9158-GN; G9186-GN; J0456; J0696; J1650; J1815; Q9967

== ENCOUNTER 2017-03-04 16:36 | Emergency (ER) | payer OTHER ==
[~2017-03-04] VITALS: Ht 165.1 cm; Wt 88.0 kg
--- NOTE | ~2017-03-04 | CT102 ---
[facility] A Service of [facility] & [facility] RADIOLOGY TEXT RESULTS PATIENT: TYSON RETANA LOCATION: [facility] : 48 UNIT #: [id number] AGE: [address]: Kar Johnson MD SEX: F ORDER DR: [id number] [place] [id number] [facility]. [place], [place] [address] [id number] E MR#: [id number] Acc #: [id number] NAME: TYSON RETANA : 1950 SEX: F STUDY DATE/TIME: 03/04/2017 20:20 UNIT: [facility] ROOM: STUDY DESCRIPTION: CT Orbits W Contrast Attending Physician: Kar Johnson Ordering Physician: Ed Doctor [id number] [facility] Primary Care Physician: Magalis Sky M.D. MEDICAL IMAGING REPORT This report is preliminary unless electronic signature is present EXAM CT orbits with IV contrast. COMPARISON CT head dated September 01, 2016. INDICATION 66-year-old female with right eyelid swelling and erythema as well as pain for [address] imaging of the orbits was performed after IV administration of Isovue-370, 100 mL. Coronal and sagittal reformats were constructed. This CT exam was performed with one or more of the following radiation dose reduction techniques: automatic exposure control, adjustment of mA and/or kV according to patient size, and iterative reconstruction. There is soft tissue thickening of the right preseptal soft tissues without associated intraorbital extension. The right globe is unremarkable. The extraocular muscles and optic nerves appear symmetric bilaterally. No subcutaneous gas or radiopaque foreign body. No evidence of rim-enhancing abscess. Moderate cerebral volume loss is noted. No definite abnormality of the intracranial arteries is seen. Visualized mastoid air cells, middle ears and paranasal sinuses are well-aerated. No acute fractures or suspicious osseous lesions. No evidence of osteomyelitis. Mild chronic-appearing right maxillary sinus disease. IMPRESSION 1. There is mild right preseptal cellulitis without evidence of intraorbital extension. The globes are intact. No evidence of abscess formation or osteomyelitis. [facility] A Service of [facility] & [facility] RADIOLOGY TEXT RESULTS PATIENT: TYSON RETANA LOCATION: [facility] : 48 UNIT #: [id number] AGE: [address]: Kar Johnson MD SEX: F ORDER DR: 2. [id number] cerebral volume loss. Dictated by... Nir Mcgregor M.D. THIS IS AN ELECTRONICALLY VERIFIED REPORT Nir Mcgregor M.D. at 03/11/2017 6:36 PM MARLENE/shannon TD: 03/05/2017 00:27 JOB #: [id number] MEDICAL IMAGING REPORT Page 1 of 1 COPY
[~2017-03-04 16:36] MED LIST changes: +ATORVASTATIN CA80 MG PO; +CELEXA20 MG PO; +COREG3.125 MG PO; +ELIQUIS5 MG PO; +GLIMEPIRIDE2 MG PO; +HALDOL PO; +LEVAQUIN750 MG PO; +LEVEMIR SUBQ; +LISINOPRIL5 MG PO; +METFORMIN HCL1000 M1 PO
[2017-03-04 19:25] LABS: BASOPHIL# 0.1 X10e3 (0-0.3); EOSINOPHIL# 0.8 X10e3 (0-0.7); EOSINOPHIL% 9.5 % (0.0-7.0); HEMATOCRIT 34.9 % (35.0-45.0); HEMOGLOBIN 11.3 gm/dL (12.0-16.0); LYMPHOCYTE# 1.4 X10e3 (1.0-3.5); LYMPHOCYTE% 16.8 % (17.0-45.0); MEAN CELL VOLUME 90.8 FL (83-96); MEAN CORPUSCULAR HEMOGLOBIN 29.4 PG (28-34); MEAN CORPUSCULAR HGB CONC 32.4 g/dL (30-36); MEAN PLATELET VOLUME 7.5 FL (6.5-11.5); MONOCYTE# 0.9 X10e3 (0-1.0); MONOCYTE% 10.2 % (3.0-12.0); NEUTROPHIL# 5.4 X10e3 (1.5-7.1); NEUTROPHIL% 62.5 % (40-75); PLATELET COUNT 248 X10e3 (140-420); RED BLOOD COUNT 3.84 X10e (3.90-5.30); RED CELL DISTRIBUTION WIDTH 13.3 % (11.0-15.5); WHITE BLOOD COUNT 8.6 X10e3 (4.0-10.5)
[2017-03-04 19:26] LABS: DIFF IND NO
[2017-03-04 19:46] LABS: BUN/CREATININE RATIO 31.66; CREATININE SERUM 0.6 mg/dL (0.6-1.4); GLOM FILT RATE Estimated 94.3 mL/min (>60); POTASSIUM 4.5 mmol/L (3.5-5.1)
== END 2017-03-04 21:15 | disposition home or self-care (01) ==
LOC: CED 16:36
PROVIDERS: Emergency Medicine
DX: E11.9 Type 2 diabetes mellitus without complications (principal); I11.0 Hypertensive heart disease with heart failure; I50.9 Heart failure, unspecified; Z90.49 Acquired absence of other specified parts of digestive tract; Z88.0 Allergy status to penicillin
CPT/HCPCS: 36415; 70481; 80048; 85025; 96365; 99284; J3370; Q9967